=== PATIENT | female | born 1985 | race Asian ===

== ENCOUNTER 2017-07-02 03:16 | Inpatient (IN) | payer OTHER ==
[2017-07-02] MEDS ORDERED: OXYTOCIN 20 UNIT in LR 1,000 ML IV PRN (03:49)
[2017-07-02] MEDS ORDERED: TERBUTALINE SULFATE 1 MG/ML VIAL IV PRN (03:49)
[2017-07-02] MEDS ORDERED: EPSOM SALT 454 GM TP PRN (03:49)
[2017-07-02] MEDS ORDERED: OLIVE OIL 118 ML BTL MISC PRN (03:49)
[2017-07-02] MEDS ORDERED: IBUPROFEN 600 MG TAB PO PRN (03:49)
[2017-07-02] MEDS ORDERED: LR 1,000 ML IV PRN (03:49)
[2017-07-02] MEDS: AMPICILLIN SODIUM 1 GM in NS 50 ML IV SCH ×5 (04:15→20:17)
[2017-07-02 04:27] LABS: % IMMATURE GRANULYOCYTES 0.6 % (0.0-1.1); ABSOLUTE IMMATURE GRANULOCYTES 0.07 10^3/uL (0.00-0.10); ADD DIFF? NO; ADD MORPH? NO; ADD SCAN? NO; ATYPICAL LYMPHOCYTE FLAG 0 (0-99); FRAGMENT RBC FLAG 0 (0-99); HEMATOCRIT 39.1 % (38.0-47.0); HEMOGLOBIN 13.8 g/dL (12.6-16.3); LEFT SHIFT FLG 0 (0-99); LIPEMIA HEMOLYSIS FLAG 90 (0-99); MEAN CELL HEMOGLOBIN 30.7 pg (27.9-34.1); MEAN CELL HEMOGLOBIN CONCENTR. 35.3 g/dL (32.4-36.7); MEAN CELL VOLUME 86.9 fL (81.5-99.8); MEAN PLATELET VOLUME 10.2 fL (8.7-11.7); PLATELET CLUMPS FLAG 10 (0-99); PLATELET COUNT 224 10^3/uL (150-400); RED CELL DISTRIBUTION WIDTH 13.2 % (11.5-15.2)
[2017-07-02] MEDS ORDERED: OLIVE OIL 118 ML BTL ONE (06:31)
[2017-07-02] MEDS ORDERED: LIDOCAINE 1% 300 MG/30 ML SDV ONE (06:31)
[2017-07-02] MEDS ORDERED: TERBUTALINE SULFATE 1 MG/ML VIAL ONE (06:31)
[2017-07-02] MEDS ORDERED: AMMONIA AROMATIC 1 EACH AMP IH ONE (06:31)
[2017-07-02] MEDS ORDERED: OXYTOCIN 10 UNIT/ML VIAL ONE (06:31)
[2017-07-02] MEDS ORDERED: MISOPROSTOL 200 MCG TAB ONE (06:32)
--- NOTE | 2017-07-02 08:32 | OBPROG ---
Labor Progress Note Assessment/Plan: Assessment:cat 1 fhr intermittent monitoring clear fluid prolonged rom 07/02/2017 at 1430p 18h probable rom antibiotics for GBS positive cervical dilation 4-5/100/0 cephalic contractions q 3-5 minutes apart Plan:expectant management 07/02/17 08:30 Subjective/Intrapartum Course: 07/02/17 08:29 Doing well. Coping with contractions. Continuing to leak clear fluid Feeling positive movement. Objective: 07/02/17 04:00 Patient ABO/Rh AB POSITIVE 07/02/17 04:00 - SVE Dilation (cm): 4, 5 Effacement (%): 100 Station: 0 Membranes: SROM Amniotic Fluid Color: Clear - Contraction Pattern Assessment Current Contraction Pattern: Regular - FHR Assessment Bradford FHR (bpm): 135 FHR Pattern Variability: Moderate FHR Category: 1 - AP Antepartum Course: edc 07/06/2017 came in with rom at 1430 07/02/2017 at 1430p. HSV 1 positive.+ GBS FU colpo. 07/02/17 08:32 - Physical Exam General Appearance: WD/WN, alert, no apparent distress Respiratory: chest non-tender, lungs clear, normal breath sounds Cardiac/Chest: regular rate, rhythm Abdomen: normal bowel sounds Extremities: normal range of motion, Suki's sign (negative bilaterally) DTR- Lower Extremities: Knee (R): 1+, Knee (L): 1+ (no clonus) Skin: normal color, warm/dry Neuro/Psych: no motor/sensory deficits, alert, normal mood/affect, oriented x 3 Oxytocin Orders Assessment - Pre-Induction/Augmentation Assessment Gestational Age: 39 week(s) and 3 day(s) ICD10 Worksheet Patient Problems: Problems Problem Status Onset PROM LABOR Acute
[2017-07-02] MEDS ORDERED: fentaNYL 2MCG/ML/BUP 0.1% RTU 100 ML BAG EP ONE (09:43)
[2017-07-02] MEDS ORDERED: PHENYLEPHRINE HCL 100 MCG/ML SYR ONE (09:44)
--- NOTE | 2017-07-02 10:00 | GHP ---
[f rep st] HISTORY AND PHYSICAL DATE OF ADMISSION: 07/02/2017 HISTORY OF PRESENT ILLNESS: The patient is a 32 year-old, 1, para 0, with an EDC of 07/06/2017, which gives her a gestational age of 39 and 4/7 weeks , who comes in with rupture of membranes since 14:30 on 07/02/2017. Clear fluid has been noted. States feeling positive movement. Denies bleeding. Patient has been seen with [facility] since early on in at 8 weeks and 6 days, 12/01/2016 was first visit. Early ultrasound confirmed dates. PAST MEDICAL HISTORY: Patient is HSV positive. History of yeast infections 1- 2 times in the past. UTI x1 in the past. Eczema. FAMILY HISTORY: Noncontributory. GYNECOLOGICAL HISTORY: History of condom use. This is patient's first . At 15 years began her cycle, 24-26 days, 4-5 days in length. ALLERGIES: No known drug allergies. MEDICATIONS: vitamin with DHA. LABS: Patient is AB positive. Antibody negative. RPR is nonreactive. Rubella is low immune. Hepatitis is negative. HIV is negative. Trio screen was negative. High-grade Pap was high-grade positive. HPV was negative for 16 , 18 and 45. Gonorrhea and chlamydia were negative. AFP was negative. One hour GTT was 121. The patient is anemic. PHYSICAL EXAMINATION: GENERAL: The patient is awake, alert, oriented x3. LUNGS: Clear bilaterally. ABDOMEN: Bowel sounds are positive in all 4 quadrants. EXTREMITIES: DTRs are 1+ bilaterally with no clonus. : The patient had the abnormal Pap, had a colposcopy. Patient is so no biopsies were done, Pap is needed. PLAN OF CARE: 1. Group B streptococcus positive. Antibiotics have been ordered. 2. Expectant management of labor. 3. Prolonged rupture of membranes. Clear fluid with minimal exams. 4. Consult physician, Dr. Alicia Sadler, as needed for plan of care. /[id number]/MODL MTDD
[2017-07-02] MEDS ORDERED: PHENYLEPHRINE HCL 100 MCG/ML SYR IVP PRN (10:55)
--- NOTE | 2017-07-02 10:57 | PDANEPAE ---
ANE Past Medical History - Cardiovascular History Hx Hypertension: No Hx Arrhythmias: No Hx Chest Pain: No Hx Coronary Artery / Peripheral Vascular Disease: No Hx CHF / Valvular Disease: No Hx Palpitations: No - Pulmonary History Hx COPD: No Hx Asthma/Reactive Airway Disease: No Hx Recent Upper Respiratory Infection: No Hx Oxygen in Use at Home: No Hx Sleep Apnea: No - Chronic Pain History Chronic Pain: No ANE Review of Systems Review of Systems: ANE Patient History - Allergies Allergies/Adverse Reactions: No Known Allergies Allergy (Unverified 07/02/17 03:27) ANE Labs/Vital Signs - Labs Result Diagrams: 07/02/17 04:00 - Vital Signs Height: 162.56 cm Weight: 61.235 kg ANE Physical Exam - Airway Neck exam: FROM Mallampati Score: Class 1 Mouth exam: normal dental/mouth exam - Pulmonary Pulmonary: no respiratory distress - Cardiovascular Cardiovascular: regular rate and rhythym - ASA Status ASA Status: II ANE Anesthesia Plan Anesthesia Plan: epidural Urgent/Emergent Case: Shobha lu completed preop but documented later for safe timely pt care
--- NOTE | 2017-07-02 11:59 | OBPROG ---
Labor Progress Note Assessment/Plan: Assessment:cat 1 fhr clear fluid prolonged rom 07/02/2017 at 1430p 18h probable rom antibiotics for GBS positive cervical dilation 8/100/0 cephalic contractions q 3-5 minutes apart will begin pitocin to regulate contractions pattern Plan:expectant management 07/02/17 08:30 07/02/17 11:57 Subjective/Intrapartum Course: srom clear fluid, gbs positive adequate treatment, epidural for pain relief, cephalic 07/02/17 08:29 Doing well. Coping with contractions. Continuing to leak clear fluid Feeling positive movement. 07/02/17 11:58 Comfortable after epidural doing well Objective: 07/02/17 04:00 Patient ABO/Rh AB POSITIVE 07/02/17 04:00 - SVE Dilation (cm): 8 Effacement (%): 100 Station: 0 Membranes: SROM Amniotic Fluid Color: Clear - Contraction Pattern Assessment Current Contraction Pattern: Regular - FHR Assessment Bradford FHR (bpm): 135 FHR Pattern Variability: Moderate FHR Category: 1 - AP Antepartum Course: edc 07/06/2017 came in with rom at 1430 07/02/2017 at 1430p. HSV 1 positive.+ GBS FU colpo. 07/02/17 08:32 Oxytocin Orders Assessment - Pre-Induction/Augmentation Assessment Gestational Age: 39 week(s) and 3 day(s) ICD10 Worksheet Patient Problems: Problems Problem Status Onset PROM LABOR Acute
[2017-07-02] MEDS ORDERED: OXYTOCIN 30 UNIT in NS 500 ML IV SCH (12:15)
[2017-07-02] MEDS ORDERED: ACETAMINOPHEN 500 MG TAB ONE (15:02)
[2017-07-02 16:42] LABS: BASE EXCESS CORD -4.6 mEq/L (-13.6--3.2); CORD BLOOD PCO2 48.7 mmHg (37-60); PH ARTERIAL CORD BLOOD 7.28 (7.10-7.37)
[2017-07-02 16:46] LABS: PH VENOUS CORD BLOOD 7.35 (7.20-7.42)
--- NOTE | 2017-07-02 17:19 | OBPROG ---
Labor Progress Note Assessment/Plan: Assessment:cat 2 fhr 1451 100.7 temp clear fluid prolonged rom 07/02/2017 at 1430p 18h probable rom antibiotics for GBS positive x 2 doses cervical dilation 10/100/+! cephalic contractions q 2-3 3mu pitocin Plan:will begin pushing 07/02/17 08:30 07/02/17 11:57 07/02/17 17:34 Subjective/Intrapartum Course: srom clear fluid, gbs positive adequate treatment, epidural for pain relief, cephalic 07/02/17 08:29 Doing well. Coping with contractions. Continuing to leak clear fluid Feeling positive movement. 07/02/17 11:58 Comfortable after epidural doing well 07/02/17 17:36 Feeling pressure with pushing denies pain with the epidural pushing well Objective: 07/02/17 04:00 Patient ABO/Rh AB POSITIVE 07/02/17 04:00 - SVE Dilation (cm): 10 Effacement (%): 100 Station: +1 Membranes: SROM Amniotic Fluid Color: Clear - Contraction Pattern Assessment Current Contraction Pattern: Regular - FHR Assessment Bradford FHR (bpm): 170 FHR Category: 2 - AP Antepartum Course: edc 07/06/2017 came in with rom at 1430 07/02/2017 at 1430p. HSV 1 positive.+ GBS FU colpo. 07/02/17 08:32 Oxytocin Orders Assessment - Pre-Induction/Augmentation Assessment Gestational Age: 39 week(s) and 3 day(s) ICD10 Worksheet Patient Problems: Problems Problem Status Onset PROM LABOR Acute
--- NOTE | 2017-07-02 17:23 | OBDEL ---
Info Type: Vaginal Presentation at Delivery: Vertex L&D Analgesia/Anesthesia Type: Epidural GBS+: Yes Antibiotic Used for + GBS: Ampicillin Intrapartum Medications: Generic Name Dose Route Start Last Admin Trade Name Conner PRN Reason Stop Dose Admin Ampicillin Sodium 1 gm/ Sodium 50 mls @ 100 mls/hr 07/02/17 08:00 07/02/17 12 :32 Chloride IV 08/01/17 07:59 50 mls Q4H MAR Administration Protocol Discontinued Medications Generic Name Dose Route Start Last Admin Trade Name Conner PRN Reason Stop Dose Admin Ampicillin Sodium 1 gm/ Sodium 50 mls @ 100 mls/hr 07/02/17 04:00 07/02/17 04 :47 Chloride IV 07/02/17 04:59 50 mls Q30M MAR Administration Protocol - Infant Care Provider Sales Representative Public Utilities/TELECOMMUNICATIONS OFFICER: Cecile Noel - Hospital Course Intrapartum: srom clear fluid, gbs positive adequate treatment, epidural for pain relief, cephalic 07/02/17 08:29 Doing well. Coping with contractions. Continuing to leak clear fluid Feeling positive movement. 07/02/17 11:58 Comfortable after epidural doing well Indications for Delivery: Spontaneous Labor, SROM Vaginal Delivery - Delivery Provider Delivery Physician/CNM: Rossi Bradshaw Proctoring Provider: Alicia Sadler - Labor and Delivery Onset of Contractions Date: 07/02/17 Onset of Contractions Time: 23:00 Onset of Contractions Type: Augmented Rupture of Membranes Date: 07/01/17 Rupture of Membranes Time: 14:30 Rupture of Membranes Type: Spontaneous Amniotic Fluid Color: Clear Dilation Complete Date: 07/02/17 Dilation Complete Time: 14:51 Placenta Delivery Date: 07/02/17 Placenta Delivery Time: 16:37 Total Hours of Labor: -6 Episiotomy: Midline Laceration: 2nd Degree Repair: 3-0, Vicryl Vaginal Sponge Count Correct: Yes Vaginal Needle Count Correct: Yes Vaginal Sweep Performed: No EBL: 400 Delivery Events: None Cord Gases: Cord Gases Cord Blood PCO2 48.7 mmHg (37-60) 07/02/17 16:30 Cord Base Excess -4.6 mEq/L (-13.6--3.2) 07/02/17 16:30 Cord ABG pH 7.28 (7.10-7.37) 07/02/17 16:30 Cord VBG pH 7.35 (7.20-7.42) 07/02/17 16:30 - Medications Labor Augmentation/Induction Methods Used: Pitocin Labor Augmentation/Induction Indication: Contraction Strength Inadequate Operative Report - Delivery Cord Gases: Cord Gases Cord Blood PCO2 48.7 mmHg (37-60) 07/02/17 16:30 Cord Base Excess -4.6 mEq/L (-13.6--3.2) 07/02/17 16:30 Cord ABG pH 7.28 (7.10-7.37) 07/02/17 16:30 Cord VBG pH 7.35 (7.20-7.42) 07/02/17 16:30 Friend Data Bradford Delivery Date: 07/02/17 Delivery Time: 16:24 TAMICA: 07/06/17 Gestational Age: 39 week(s) and 3 day(s) Sex of : Female Score (1 Min): 8 Score (5 Min): 9 ICD10 Worksheet Patient Problems: Problems Problem Status Onset PROM LABOR Acute
[2017-07-02] MEDS ORDERED: HYDROCODONE/APAP 5/325 TAB PO PRN (17:25)
[2017-07-02] MEDS ORDERED: SIMETHICONE 80 MG TAB CHEW PO PRN (17:25)
[2017-07-02] MEDS ORDERED: ACETAMINOPHEN 325 MG TAB PO PRN (17:25)
[2017-07-02] MEDS ORDERED: HYDROCORTISONE 0.5% CREAM TP PRN (17:25)
[2017-07-02] MEDS ORDERED: MEASLES,MUMPS&RUBELLA VACC/PF 0.5 ML VIAL SC ONE (17:26)
--- NOTE | 2017-07-02 17:26 | PREANESOB ---
Obstetric Pre-Anesthesia Info - General Info : 1 Para: 0 TAMICA: 07/06/17 Gestational Age: 39 week(s) and 3 day(s) - Labor Status Cervical Dilation per last OB SVE: 8 Station per last OB SVE: 0 Rupture of Membranes Date: 07/01/17 Rupture of Membranes Time: 14:30 Amniotic Fluid Color: Clear Anesthesia Allergies/Adverse Reactions: Allergy/AdvReac Type Severity Reaction Status Date / Time No Known Allergies Allergy Unverified 07/02/17 03:27 Visit Medications: Generic Name Dose Route Start Last Admin Trade Name Freq PRN Reason Stop Dose Admin Ampicillin Sodium 1 gm/ Sodium 50 mls @ 100 mls/hr 07/02/17 08:00 07/02/17 12 :32 Chloride IV 08/01/17 07:59 50 mls Q4H MAR Administration Protocol Lactated Ringer's 1,000 mls @ 0 mls/hr 07/02/17 03:49 Lr IV 12/29/17 03:48 PRN PRN SEE PROTOCOL CONDITIONS Protocol Per Protocol Oxytocin 20 unit/ Lactated 1,002 mls @ 150 mls/hr 07/02/17 03:49 Ringer's IV PRN PRN Post- bleeding Oxytocin 30 unit/ Sodium 503 mls @ 0 mls/hr 07/02/17 12:15 Chloride IV 12/29/17 12:14 CONT MAR Protocol Per Protocol Gentamicin Sulfate 300 mg/ 107.5 mls @ 107.5 mls/hr 07/03/17 16:00 Dextrose IV 08/02/17 15:59 DAILY@1600 MAR Ibuprofen 600 mg 07/02/17 03:49 07/02/17 17:00 Motrin PO 12/29/17 03:48 600 mg Q6HRS PRN Administration post , inflammation Magnesium Sulfate 454 gm 07/02/17 03:49 Epsom Salt TP 12/29/17 03:48 Q1H PRN perineal discomfort Prather Oil 118 ml 07/02/17 03:49 Sweet Oil MISC 12/29/17 03:48 ONCE PRN perineal massage Phenylephrine HCl 100 mcg 07/02/17 10:55 Neosynephrine IVP 12/29/17 10:54 .Q2M PRN Hypotension Terbutaline Sulfate 0.25 mg 07/02/17 03:49 Brethine IV 12/29/17 03:48 ONCE PRN Tachysystole Discontinued Medications Generic Name Dose Route Start Last Admin Trade Name Conner PRN Reason Stop Dose Admin Acetaminophen Confirm 07/02/17 15:02 Tylenol Administered 07/02/17 15:03 Dose 1,000 mg .ROUTE .STK-MED ONE Ammonia (Aromatic Spirit) Confirm 07/02/17 06:31 Ammonia Aromatic Administered 07/02/17 06:32 Dose 1 each IH .STK-MED ONE Ephedrine Sulfate Confirm 07/02/17 06:31 Ephedrine Sulfate Administered 07/02/17 06:32 Dose 50 mg .ROUTE .STK-MED ONE Fentanyl/Bupivacaine HCl Confirm 07/02/17 09:43 Fentanyl/Bupivacaine/Ns 2 Mcg/Ml 0.1% (Premix Administered 07/02/17 09:44 Dose 100 ml EP .STK-MED ONE Ampicillin Sodium 1 gm/ Sodium 50 mls @ 100 mls/hr 07/02/17 04:00 07/02/17 04 :47 Chloride IV 07/02/17 04:59 50 mls Q30M MAR Administration Protocol Lidocaine HCl Confirm 07/02/17 06:31 Lidocaine Hcl 1% Administered 07/02/17 06:32 Dose 300 mg .ROUTE .STK-MED ONE Misoprostol Confirm 07/02/17 06:32 Cytotec Administered 07/02/17 06:33 Dose 1,000 mcg .ROUTE .STK-MED ONE Prather Oil Confirm 07/02/17 06:31 Sweet Oil Administered 07/02/17 06:32 Dose 118 ml .ROUTE .STK-MED ONE Oxytocin Confirm 07/02/17 06:31 Pitocin Administered 07/02/17 06:32 Dose 40 unit .ROUTE .STK-MED ONE Phenylephrine HCl Confirm 07/02/17 09:44 Neosynephrine Administered 07/02/17 09:45 Dose 1,000 mcg .ROUTE .STK-MED ONE Terbutaline Sulfate Confirm 07/02/17 06:31 Brethine Administered 07/02/17 06:32 Dose 1 mg .ROUTE .STK-MED ONE - Anesthesia History Response to Local Anesthetics: Normal Anesthesia & Operative History: No Prior Problems Family Anesthesia History: Not Applicable - Vital Signs Height/Weight (Nursing): Height 162.56 cm Weight 61.235 kg - Focused Exam Neck exam: FROM Mallampati Score: Class 1 Mouth exam: normal dental/mouth exam Pulmonary: no respiratory distress Cardiovascular: regular rate and rhythym Labs: 07/02/17 04:00 Patient ABO/Rh AB POSITIVE 07/02/17 04:00 - Plan Anesthetic Plan: PCEA Consent Signed and on Chart: Yes Patient/Guardian Understands and Agrees to Plan: Yes Urgent/Emergent Case: Shobha lu completed preop but documented later for safe timely pt care
--- NOTE | 2017-07-02 17:28 | POSTANESTH ---
Post Anesthetic Evaluation Cardiovascular Status: Normal, Stable Respiratory Status: Normal, Stable Level of Consciousness/Mental Status: Can Participate in Eval, Alert and Oriented Complications Possibly Related to Anesthesia: None Noted
--- NOTE | 2017-07-02 17:44 | OBDEL ---
Info Type: Vaginal Presentation at Delivery: Vertex L&D Analgesia/Anesthesia Type: Epidural GBS+: Yes Antibiotic Used for + GBS: Ampicillin Intrapartum Medications: Generic Name Dose Route Start Last Admin Trade Name Freq PRN Reason Stop Dose Admin Ampicillin Sodium 1 gm/ Sodium 50 mls @ 100 mls/hr 07/02/17 08:00 07/02/17 12 :32 Chloride IV 08/01/17 07:59 50 mls Q4H MAR Administration Protocol Ibuprofen 600 mg 07/02/17 03:49 07/02/17 17:00 Motrin PO 12/29/17 03:48 600 mg Q6HRS PRN Administration post , inflammation Discontinued Medications Generic Name Dose Route Start Last Admin Trade Name Freq PRN Reason Stop Dose Admin Ampicillin Sodium 1 gm/ Sodium 50 mls @ 100 mls/hr 07/02/17 04:00 07/02/17 04 :47 Chloride IV 07/02/17 04:59 50 mls Q30M MAR Administration Protocol - Care Provider Regulation Supervisor/DRAW OFF WORKER: Cecile Noel - Hospital Course Intrapartum: srom clear fluid, gbs positive adequate treatment, epidural for pain relief, cephalic max temp 101.8 gentamycin 1 time dose. PLacenta to pathology, 2degree episiotomy repaired with 3.o vicryl and lidocaine used to assist with pain 07/02/17 08:29 Doing well. Coping with contractions. Continuing to leak clear fluid Feeling positive movement. 07/02/17 11:58 Comfortable after epidural doing well 07/02/17 17:36 Feeling pressure with pushing denies pain with the epidural pushing well 07/02/17 17:42 Indications for Delivery: Spontaneous Labor, SROM Vaginal Delivery - Delivery Provider Delivery Physician/CNM: Rossi Bradshaw Proctoring Provider: Alicia Sadler - Labor and Delivery Onset of Contractions Date: 07/02/17 Onset of Contractions Time: 23:00 Rupture of Membranes Date: 07/01/17 Rupture of Membranes Time: 14:30 Rupture of Membranes Type: Spontaneous Amniotic Fluid Color: Clear Dilation Complete Date: 07/02/17 Dilation Complete Time: 14:51 Placenta Delivery Date: 07/02/17 Placenta Delivery Time: 16:37 Total Hours of Labor: -6 Episiotomy: Midline Laceration: 2nd Degree Repair: 3-0, Vicryl Vaginal Sponge Count Correct: Yes Vaginal Needle Count Correct: Yes EBL: 400 Delivery Events: None Cord Gases: Cord Gases Cord Blood PCO2 48.7 mmHg (37-60) 07/02/17 16:30 Cord Base Excess -4.6 mEq/L (-13.6--3.2) 07/02/17 16:30 Cord ABG pH 7.28 (7.10-7.37) 07/02/17 16:30 Cord VBG pH 7.35 (7.20-7.42) 07/02/17 16:30 - Medications Labor Augmentation/Induction Methods Used: Pitocin Labor Augmentation/Induction Indication: Contraction Strength Inadequate Operative Report - Delivery Cord Gases: Cord Gases Cord Blood PCO2 48.7 mmHg (37-60) 07/02/17 16:30 Cord Base Excess -4.6 mEq/L (-13.6--3.2) 07/02/17 16:30 Cord ABG pH 7.28 (7.10-7.37) 07/02/17 16:30 Cord VBG pH 7.35 (7.20-7.42) 07/02/17 16:30 Data Bradford Delivery Date: 07/02/17 Delivery Time: 16:24 TAMICA: 07/06/17 Gestational Age: 39 week(s) and 3 day(s) Sex of Infant: Female Score (1 Min): 8 Score (5 Min): 9 ICD10 Worksheet Patient Problems: Problems Problem Status Onset PROM LABOR Acute
[2017-07-02] MEDS: DOCUSATE SODIUM 100 MG CAP PO PRN (22:49)
[2017-07-02] MEDS: IBUPROFEN 600 MG TAB PO PRN (22:49)
[2017-07-03] MEDS: IBUPROFEN 600 MG TAB PO PRN ×3 (06:08→18:36)
[2017-07-03] MEDS: IRON POLYSAC/IRON HEME 28 MG TAB PO SCH (08:38)
[2017-07-03] MEDS: DOCUSATE SODIUM 100 MG CAP PO PRN (08:38)
[2017-07-03] MEDS ORDERED: EPSOM SALT 454 GM TP ONE (09:15)
[2017-07-03] MEDS ORDERED: GENTAMICIN SULFATE 300 MG in D5W 100 ML IV SCH (16:00)
[2017-07-04] MEDS: DOCUSATE SODIUM 100 MG CAP PO PRN ×2 (00:35→08:34)
[2017-07-04] MEDS: IBUPROFEN 600 MG TAB PO PRN ×3 (00:35→14:18)
[2017-07-04] MEDS: IRON POLYSAC/IRON HEME 28 MG TAB PO SCH (08:34)
[2017-07-04 10:07] VITALS: BP 105/70; PULSE 78; RESP 16; TEMP 98.6; O2SAT 92
[2017-07-04] MEDS ORDERED: EPSOM SALT 454 GM TP ONE (10:10)
[2017-07-04] MEDS ORDERED: MEASLES,MUMPS&RUBELLA VACC/PF 0.5 ML VIAL SC ONE (11:30)
--- NOTE | 2017-07-04 13:01 | OBPP ---
Progress Note Assessment/Plan: Assessment: Post day 2 Normal spontaneous vaginal delivery Ambulating tolerating diet s/p chorioamnionitis Breast feeding Plan: Discharge home Follow up [facility] in two weeks Return precautions given 07/04/17 13:06 Subjective/ Course: 07/04/17 13:01 Doing well no problems. Ambulating, tolerating PO patient is currently breast feeding. 07/04/17 13:05 Objective: 07/03/17 06:15 Patient ABO/Rh AB POSITIVE 07/02/17 04:00 Temp Pulse Resp BP Pulse Ox 37.0 C 78 16 105/70 92 07/04/17 08:00 07/04/17 08:00 07/04/17 08:00 07/04/17 08:00 07/04/17 08:00 Uterine Position/Fundal Height: Umbilicus -2 Uterine Tone: Firm Physical Exam - Physical Exam Respiratory: chest non-tender Abdomen: normal bowel sounds, non-tender, distended, other (Fundus firm below umbilicus) Extremities: normal range of motion, non-tender Back: Normal inspection Skin: normal color Neuro/Psych: no motor/sensory deficits, alert, normal mood/affect, oriented x 3
== END 2017-07-04 14:30 | disposition home or self-care (01) | DRG 775 ==
LOC: OBSVTOIN 03:16 → FLD 03:16 → FOB 19:30
PROVIDERS: ADMIT Obstetrics & Gynecology; ATTEND Obstetrics & Gynecology
DX: O99.820 Streptococcus B carrier state complicating pregnancy (principal); O41.1230 Chorioamnionitis, third trimester, not applicable or unspecified; Z3A.39 39 weeks gestation of pregnancy; Z37.0 Single live birth
CPT/HCPCS: J0290; J2370; J3105